=== PATIENT | female | born 1990 | race Hispanic/Latino ===

== ENCOUNTER 2017-02-13 18:04 | Observation (INO) | payer MEDICAID ==
[~2017-02-13] VITALS: Ht 157.5 cm; Wt 71.7 kg
[2017-02-13] MEDS ORDERED: ACETAMINOPHEN EXTRA STRENGTH 500 MG TABLET ONE (18:22)
[2017-02-13] MEDS ORDERED: SODIUM CHLORIDE 0.9% 1000ML 1,000 ML IV ONE (18:22)
[2017-02-13 18:37] LABS: BASOPHILS % (AUTO) 0.1 % (0.0-5.0); EOSINOPHILS % (AUTO) 0.2 % (0.0-8.0); HEMATOCRIT 29.6 % (36-48); LYMPHOCYTES % (AUTO) 14.9 % (21.0-51.0); MEAN CORPUSCULAR HEMOGLOBIN 30.7 pg (27.0-33.0); MEAN CORPUSCULAR HGB CONC 35.1 g/dL (32.0-36.0); MEAN CORPUSCULAR VOLUME 87.5 fL (79-99); MONOCYTES % (AUTO) 1.6 % (3.0-13.0); NEUTROPHILS % (AUTO) 83.2 % (40.0-77.0); PLATELET COUNT (AUTO) 281 K/uL (130-400); RED BLOOD CELL COUNT(AUTO) 3.39 MIL/uL (4.00-5.50); RED CELL DISTRIBUTION WIDTH 13.7 % (11.0-15.5); WHITE BLOOD COUNT (AUTO) 9.8 K/uL (4.8-10.8)
[2017-02-13 18:56] LABS: APPEARANCE,URINE Clear (CLEAR); BILIRUBIN,URINE Negative (NEGATIVE); COLOR,URINE Yellow (YELLOW); GLUCOSE, URINE (UA) Negative (NEGATIVE); KETONES,URINE 15 mg/dL (NEGATIVE); LEUKOCYTE ESTERASE ,URINE Moderate (NEGATIVE); NITRATE,URINE Negative (NEGATIVE); OCCULT BLOOD,URINE Trace (NEGATIVE); PH,URINE 5.5 (5.0-8.0); PROTEIN,URINE Trace (NEGATIVE)
[2017-02-13 19:05] LABS: CREATININE 0.7 mg/dL (0.5-1.5); POTASSIUM 3.7 mmol/L (3.5-5.1)
[2017-02-13 19:05] LABS: RAPID GROUP A STREP NEGATIVE (NEGATIVE)
[2017-02-13 19:10] LABS: ALBUMIN 2.7 g/dL (3.5-5.0); BILIRUBIN,TOTAL 0.5 mg/dL (0.2-1.0); TOTAL PROTEIN, SERUM 7.2 g/dL (6.0-8.3)
[2017-02-13 19:14] LABS: BACTERIA,URINE Few /HPF (None Seen); RBC,URINE 0-1 /HPF (0-1); WBC,URINE 26-50 /HPF (0-1)
[2017-02-13 19:15] LABS: SQUAMOUS EPITHELIAL CELL,UR 0-2 /LPF (0-2); TRANSITIONAL EPI CELLS,URINE Few /LPF (None Seen)
[2017-02-13] MEDS ORDERED: CEFTRIAXONE SODIUM 1 GM ONE (19:25)
[2017-02-13 21:20] VITALS: BP 98/51
[2017-02-13] MEDS: SODIUM CHLORIDE 0.9% 1000ML 1,000 ML IV SCH (22:00)
[2017-02-14] MEDS ORDERED: PNV1TABL17 PO (00:01)
[2017-02-14] MEDS ORDERED: PROM25TA7 PO (00:03)
[2017-02-14 00:04] VITALS: BP 100/50
[2017-02-14] MEDS: ACETAMINOPHEN EXTRA STRENGTH 500 MG TABLET PO PRN ×2 (01:19→13:03)
[2017-02-14] MEDS ORDERED: PROMETHAZINE HCL 25 MG/ML 1ML AMPULE IM ONE (02:42)
[2017-02-14] MEDS ORDERED: MEPERIDINE-PF 25 MG/ML SYG ONE (02:42)
[2017-02-14] MEDS ORDERED: PROMETHAZINE HCL 25 MG/ML 1ML AMPULE IM PRN (02:45)
[2017-02-14] MEDS ORDERED: MEPERIDINE-PF 25 MG/ML SYG IM PRN (02:45)
[2017-02-14 02:53] VITALS: BP 102/53
[2017-02-14] MEDS: SODIUM CHLORIDE 0.9% 1000ML 1,000 ML IV SCH ×2 (03:33→08:47)
[2017-02-14] MEDS ORDERED: FLU VACC QS2017-18 36MOS UP/PF 60 MCG/0.5 ML ML IM ONE (06:30)
[2017-02-14 07:35] VITALS: BP 104/68
[2017-02-14] MEDS ORDERED: FLU VACC QS2017-18 36MOS UP/PF 60 MCG/0.5 ML ML IM NR (08:00)
[2017-02-14] MEDS ORDERED: MAG HYDROX/AL HYDROX/SIMETH ES 30 ML SUSP UDCUP PO PRN (11:15)
[2017-02-14 11:37] VITALS: BP 113/66
[2017-02-14] MEDS ORDERED: CEFTRIAXONE 1GM/D5W 50ML 50 ML IV ONE (15:45)
[2017-02-14 15:50] VITALS: BP 113/67
[2017-02-14] MEDS ORDERED: CEFTRIAXONE 1GM/D5W 50ML 50 ML IV SCH (20:00)
[2017-02-14] MEDS ORDERED: CEFTRIAXONE SODIUM 1 GM IVP SCH (20:00)
== END 2017-02-14 16:35 | disposition left against medical advice (07) ==
LOC: EDH 18:04 → EDHIP 18:05 → WSH 21:47
PROVIDERS: ADMIT Specialist; ATTEND Specialist
DX: O23.02 Infections of kidney in pregnancy, second trimester (principal); O26.892 Other specified pregnancy related conditions, second trimester; R10.32 Left lower quadrant pain; Z3A.27 27 weeks gestation of pregnancy
CPT/HCPCS: 36415; 71046; 76805; 80053; 81001; 83605; 85025; 87040 ×2; 87088; 87186; 87804 ×2; 87880; 96361; 96372; 96374; 99285; G0378 ×22; J0696 ×3; J2175 ×2; J2550 ×2; J7030 ×2

== ENCOUNTER 2017-04-02 07:43 | Observation (INO) | payer MEDICAID ==
[2017-04-01] MEDS: AMPICILLIN 1GM+NS 50ML 50 ML IV SCH (12:50)
[~2017-04-02] VITALS: Ht 160 cm; Wt 71.2 kg
[~2017-04-02 07:43] MED LIST: PNV1TABL17 PO; PROM25TA7 PO
[2017-04-02 08:15] LABS: APPEARANCE,URINE Clear (CLEAR); BILIRUBIN,URINE Negative (NEGATIVE); COLOR,URINE Yellow (YELLOW); GLUCOSE, URINE (UA) Negative (NEGATIVE); KETONES,URINE Negative (NEGATIVE); LEUKOCYTE ESTERASE ,URINE Negative (NEGATIVE); NITRATE,URINE Negative (NEGATIVE); OCCULT BLOOD,URINE Negative (NEGATIVE); PH,URINE 7.5 (5.0-8.0); PROTEIN,URINE Negative (NEGATIVE); UROBILINOGEN,URINE 0.2 mg/dL (0.2-1.0)
[2017-04-02 08:25] LABS: AMPHET/METH SCREEN,URINE NEGATIVE (NEGATIVE); BARBITURATE SCREEN, URINE NEGATIVE (NEGATIVE); BENZODIAZEPINES SCREEN,URINE NEGATIVE (NEGATIVE); CANNABINOID SCREEN,URINE NEGATIVE (NEGATIVE); COCAINE SCREEN,URINE NEGATIVE (NEGATIVE); OPIATE SCREEN,URINE NEGATIVE (NEGATIVE); PHENCYCLIDINE SCREEN,URINE NEGATIVE (NEGATIVE)
[2017-04-02] MEDS: LACTATED RINGERS 1000ML 1,000 ML IV PRN ×3 (08:30→23:26)
[2017-04-02] MEDS ORDERED: MAGNESIUM SULFATE 1,000 ML IV PRN (08:39)
[2017-04-02] MEDS ORDERED: CALCIUM GLUCONATE 1 GM/10 ML VIAL IV PRN (08:45)
[2017-04-02] MEDS ORDERED: AMPICILLIN 2GM+NS 100ML 100 ML IV SCH (08:45)
[2017-04-02] MEDS ORDERED: MAGNESIUM 4GM PREMIX 100ML 100 ML IV SCH (08:45)
[2017-04-02] MEDS ORDERED: AMPICILLIN 2GM+NS 100ML 100 ML IV ONE (08:46)
[2017-04-02] MEDS ORDERED: DEXAMETHASONE SOD PHOSPHATE 4 MG/ML 1ML VIAL ONE (08:46)
[2017-04-02] MEDS ORDERED: MAGNESIUM 4GM PREMIX 100ML 100 ML IV ONE (08:46)
[2017-04-02] MEDS: DEXAMETHASONE SOD PHOSPHATE 4 MG/ML 1ML VIAL IM SCH ×3 (08:55→22:11)
[2017-04-02 09:05] LABS: HEMATOCRIT 30.2 % (36-48); MEAN CORPUSCULAR HEMOGLOBIN 29.8 pg (27.0-33.0); MEAN CORPUSCULAR HGB CONC 34.7 g/dL (32.0-36.0); MEAN CORPUSCULAR VOLUME 85.8 fL (79-99); PLATELET COUNT (AUTO) 285 K/uL (130-400); RED BLOOD CELL COUNT(AUTO) 3.52 MIL/uL (4.00-5.50); RED CELL DISTRIBUTION WIDTH 14.5 % (11.0-15.5); WHITE BLOOD COUNT (AUTO) 6.4 K/uL (4.8-10.8)
[2017-04-02] MEDS ORDERED: CALCIUM GLUCONATE 1 GM in SODIUM CHLORIDE 0.9% 50 ML IV SCH (09:15)
[2017-04-02] MEDS ORDERED: CALCIUM GLUCONATE 1 GM in SODIUM CHLORIDE 0.9% 50 ML IV PRN (09:17)
[2017-04-02] MEDS ORDERED: CITRIC ACID/SODIUM CITRATE 30 ML UDCUP ONE (14:25)
[2017-04-02] MEDS ORDERED: CITRIC ACID/SODIUM CITRATE 30 ML UDCUP PO SCH (14:30)
[2017-04-02] MEDS: AMPICILLIN 1GM+NS 50ML 50 ML IV SCH ×2 (16:44→20:51)
[2017-04-02] MEDS ORDERED: MAG HYDROX/AL HYDROX/SIMETH ES 30 ML SUSP UDCUP PO STA (19:43)
[2017-04-02] MEDS ORDERED: OSELTAMIVIR PHOSPHATE 75 MG CAP PO STA (22:24)
[2017-04-02] MEDS ORDERED: OSELTAMIVIR PHOSPHATE 75 MG CAP ONE (22:27)
[2017-04-03] MEDS: AMPICILLIN 1GM+NS 50ML 50 ML IV SCH ×2 (00:34→04:05)
[2017-04-03] MEDS: DEXAMETHASONE SOD PHOSPHATE 4 MG/ML 1ML VIAL IM SCH (04:05)
[2017-04-03] MEDS ORDERED: OSELTAMIVIR PHOSPHATE 75 MG CAP ONE (09:47)
[2017-04-03 13:18] LABS: HEPATITIS Bs ANTIGEN SCREEN P Negative (Negative)
== END 2017-04-03 10:35 | disposition home or self-care (01) ==
LOC: EDH 07:43 → LDH 07:44
PROVIDERS: ADMIT Specialist; ATTEND Specialist
DX: O62.9 Abnormality of forces of labor, unspecified (principal); Z3A.30 30 weeks gestation of pregnancy
CPT/HCPCS: 36415; 80305; 81003; 83735 ×2; 85027; 86592; 86850; 86900; 86901; 87340; 87804 ×2; 96361; 96365; 96366 ×2; 96368; 96372 ×3; 99285; A4314; G0378 ×27; J0290 ×6; J0610; J1100 ×4; J3475 ×2; J7120; 96360

== ENCOUNTER 2017-05-03 15:14 | Inpatient (IN) | payer MEDICAID ==
[2017-05-03 15:45] LABS: APPEARANCE,URINE Clear (CLEAR); BILIRUBIN,URINE Negative (NEGATIVE); COLOR,URINE Yellow (YELLOW); GLUCOSE, URINE (UA) Negative (NEGATIVE); KETONES,URINE Negative (NEGATIVE); LEUKOCYTE ESTERASE ,URINE Negative (NEGATIVE); NITRATE,URINE Negative (NEGATIVE); OCCULT BLOOD,URINE Negative (NEGATIVE); PROTEIN,URINE Negative (NEGATIVE); UROBILINOGEN,URINE 0.2 mg/dL (0.2-1.0)
[2017-05-03 16:11] LABS: HEMATOCRIT 47.1 % (36-48); MEAN CORPUSCULAR HEMOGLOBIN 28.3 pg (27.0-33.0); MEAN CORPUSCULAR HGB CONC 33.4 g/dL (32.0-36.0); MEAN CORPUSCULAR VOLUME 84.5 fL (79-99); NUCLEATED RED BLOOD CELLS 0.1 % (0.0-0.19); PLATELET COUNT (AUTO) 296 K/uL (130-400); RED BLOOD CELL COUNT(AUTO) 5.57 MIL/uL (4.00-5.50); RED CELL DISTRIBUTION WIDTH 15.2 % (11.0-15.5); WHITE BLOOD COUNT (AUTO) 10.5 K/uL (4.8-10.8)
[2017-05-03] MEDS ORDERED: PROPOFOL 10 MG/ML 20ML VIAL IV ONE (16:22)
[2017-05-03] MEDS ORDERED: FENTANYL CITRATE PF 50 MCG/1 ML 5ML AMP IV ONE (16:31)
[2017-05-03] MEDS ORDERED: OXYTOCIN 10 UNIT/1ML 10ML VIAL ONE (16:35)
[2017-05-03] MEDS ORDERED: CEFAZOLIN SODIUM 1 GM VIAL ONE (16:36)
[2017-05-03] MEDS ORDERED: BERACTANT 200MG/8ML IH ONE (16:39)
[2017-05-03] MEDS ORDERED: BERACTANT 100MG/4ML IH ONE (16:39)
[2017-05-03] MEDS ORDERED: CEFAZOLIN SODIUM 1 GM VIAL IVP ONE (16:40)
[2017-05-03] MEDS ORDERED: MORPHINE SULFATE 10 MG/ML 1ML SYG ONE (16:45)
[2017-05-03] MEDS ORDERED: MISOPROSTOL 200 MCG TABLET ONE (16:54)
[2017-05-03] MEDS ORDERED: MEASLES/MUMPS/RUBELLA VACCINE, LIVE 0.5 ML/VIAL SQ SCH (17:15)
[2017-05-03] MEDS ORDERED: HYDROCODONE/ACETAMINOPHEN 5/325 MG TAB PO PRN (17:15)
[2017-05-03] MEDS ORDERED: DIPH,PERTUSS(ACELL),TET VAC/PF 0.5 ML VIAL IM SCH (17:15)
[2017-05-03] MEDS ORDERED: OXYTOCIN-LR 20 UNITS/1000 ML 1,000 ML IV PRN (17:15)
[2017-05-03] MEDS ORDERED: PROMETHAZINE HCL 25 MG/ML 1ML AMPULE IM PRN (17:15)
[2017-05-03] MEDS ORDERED: LANOLIN 30GM OINTMENT TP PRN (17:15)
[2017-05-03] MEDS ORDERED: DIPHENHYDRAMINE HCL 25 MG CAPSULE PO PRN (17:15)
[2017-05-03] MEDS ORDERED: MEPERIDINE-PF 75 MG/ML SYG IM PRN (17:15)
[2017-05-03] MEDS ORDERED: LACTATED RINGERS 1000ML 1,000 ML IV SCH ×2 (17:15→20:26)
[2017-05-03] MEDS ORDERED: MAG HYDROX/AL HYDROX/SIMETH ES 30 ML SUSP UDCUP PO SCH (18:30)
[2017-05-03 18:34] LABS: AMPHET/METH SCREEN,URINE NEGATIVE (NEGATIVE); BARBITURATE SCREEN, URINE NEGATIVE (NEGATIVE); BENZODIAZEPINES SCREEN,URINE NEGATIVE (NEGATIVE); CANNABINOID SCREEN,URINE NEGATIVE (NEGATIVE); COCAINE SCREEN,URINE NEGATIVE (NEGATIVE); OPIATE SCREEN,URINE NEGATIVE (NEGATIVE); PHENCYCLIDINE SCREEN,URINE NEGATIVE (NEGATIVE)
[2017-05-03] MEDS ORDERED: MAG HYDROX/AL HYDROX/SIMETH ES 30 ML SUSP UDCUP ONE (18:36)
[2017-05-03] MEDS ORDERED: CALDOLOR 800MG+NS 250ML 250 ML IV ONE (18:49)
[2017-05-03] MEDS ORDERED: MAGNESIUM SULFATE 1,000 ML IV PRN (20:26)
[2017-05-03] MEDS ORDERED: CALCIUM GLUCONATE 1 GM/10 ML VIAL IVP PRN (20:30)
[2017-05-03] MEDS ORDERED: MAGNESIUM 4GM PREMIX 100ML 100 ML IV PRN (20:30)
[2017-05-03] MEDS ORDERED: MAGNESIUM 4GM PREMIX 100ML 100 ML IV ONE (20:33)
[2017-05-03] MEDS: LIDOCAINE 5% TOPICAL PATCH TP SCH (20:53)
[2017-05-03] MEDS: SIMETHICONE 80 MG TAB.CHEW PO PRN (22:58)
[2017-05-04] MEDS ORDERED: CALDOLOR 800MG+NS 250ML 250 ML IV SCH (01:15)
[2017-05-04 07:08] LABS: HEMATOCRIT 39.8 % (36-48); MEAN CORPUSCULAR HEMOGLOBIN 27.9 pg (27.0-33.0); MEAN CORPUSCULAR HGB CONC 32.5 g/dL (32.0-36.0); PLATELET COUNT (AUTO) 295 K/uL (130-400); RED BLOOD CELL COUNT(AUTO) 4.63 MIL/uL (4.00-5.50); RED CELL DISTRIBUTION WIDTH 15.4 % (11.0-15.5)
[2017-05-04 07:52] LABS: BASOPHILS % (AUTO) 0.1 % (0.0-5.0); HEMATOCRIT 40.5 % (36-48); LYMPHOCYTES % (AUTO) 20.4 % (21.0-51.0); MEAN CORPUSCULAR HEMOGLOBIN 27.6 pg (27.0-33.0); MEAN CORPUSCULAR HGB CONC 32.2 g/dL (32.0-36.0); MEAN CORPUSCULAR VOLUME 85.6 fL (79-99); MONOCYTES % (AUTO) 2.1 % (3.0-13.0); NEUTROPHILS % (AUTO) 77.4 % (40.0-77.0); NUCLEATED RED BLOOD CELLS 0.1 % (0.0-0.19); PLATELET COUNT (AUTO) 297 K/uL (130-400); RED BLOOD CELL COUNT(AUTO) 4.73 MIL/uL (4.00-5.50); RED CELL DISTRIBUTION WIDTH 15.4 % (11.0-15.5); WHITE BLOOD COUNT (AUTO) 24.6 K/uL (4.8-10.8)
[2017-05-04 08:10] LABS: CREATININE 1.8 mg/dL (0.5-1.5); POTASSIUM 3.4 mmol/L (3.5-5.1)
[2017-05-04 08:11] LABS: INR 1.55 (0.85-1.15); PARTIAL THROMBOPLASTIN TIME 36.9 SEC (26.3-35.5); PROTHROMBIN TIME 16.1 SEC (9.6-11.6)
[2017-05-04 08:16] LABS: ALBUMIN 2.1 g/dL (3.5-5.0); BILIRUBIN,TOTAL 1.1 mg/dL (0.2-1.0); URIC ACID 11.2 mg/dL (2.6-7.2)
[2017-05-04] MEDS ORDERED: ACETAMINOPHEN EXTRA STRENGTH 500 MG TABLET PO PRN (08:30)
[2017-05-04] MEDS ORDERED: MAG HYDROX/AL HYDROX/SIMETH ES 30 ML SUSP UDCUP PO SCH ×2 (09:15)
[2017-05-04] MEDS ORDERED: DEXTROSE 5 %-0.45 % NACL 1,000 ML IV PRN (09:45)
[2017-05-04 12:16] LABS: BASOPHILS % (AUTO) 0.1 % (0.0-5.0); HEMATOCRIT 34.5 % (36-48); LYMPHOCYTES % (AUTO) 18.7 % (21.0-51.0); MEAN CORPUSCULAR HEMOGLOBIN 28.3 pg (27.0-33.0); MEAN CORPUSCULAR HGB CONC 33.4 g/dL (32.0-36.0); MEAN CORPUSCULAR VOLUME 84.8 fL (79-99); MONOCYTES % (AUTO) 4.3 % (3.0-13.0); NEUTROPHILS % (AUTO) 76.9 % (40.0-77.0); PLATELET COUNT (AUTO) 269 K/uL (130-400); RED BLOOD CELL COUNT(AUTO) 4.06 MIL/uL (4.00-5.50); RED CELL DISTRIBUTION WIDTH 15.4 % (11.0-15.5); WHITE BLOOD COUNT (AUTO) 25.9 K/uL (4.8-10.8)
[2017-05-04] MEDS: SIMETHICONE 80 MG TAB.CHEW PO PRN (12:31)
[2017-05-04 12:35] LABS: ALBUMIN 1.8 g/dL (3.5-5.0); BILIRUBIN,DIRECT 0.5 mg/dL (0.0-0.3); BILIRUBIN,TOTAL 0.9 mg/dL (0.2-1.0); MAGNESIUM 6.8 mg/dL (1.80-2.40); TOTAL PROTEIN, SERUM 6.2 g/dL (6.0-8.3)
[2017-05-04] MEDS ORDERED: MAG HYDROX/AL HYDROX/SIMETH ES 30 ML SUSP UDCUP PO PRN (16:45)
[2017-05-04] MEDS: IBUPROFEN 800 MG TAB PO SCH (18:19)
[2017-05-04] MEDS: DOCUSATE SODIUM 100 MG CAP PO SCH (22:22)
[2017-05-04] MEDS: LIDOCAINE 5% TOPICAL PATCH TP SCH (22:23)
[2017-05-04] MEDS: ACETAMINOPHEN-CODEINE 300/30MG TAB PO PRN (23:34)
[2017-05-05] MEDS: IBUPROFEN 800 MG TAB PO SCH ×3 (03:30→16:56)
[2017-05-05 07:00] LABS: HEMATOCRIT 26.2 % (36-48); INR 2.16 (0.85-1.15); MEAN CORPUSCULAR HEMOGLOBIN 27.4 pg (27.0-33.0); MEAN CORPUSCULAR HGB CONC 32.9 g/dL (32.0-36.0); MEAN CORPUSCULAR VOLUME 83.2 fL (79-99); NUCLEATED RED BLOOD CELLS 0.1 % (0.0-0.19); PLATELET COUNT (AUTO) 211 K/uL (130-400); PROTHROMBIN TIME 22.3 SEC (9.6-11.6); RED BLOOD CELL COUNT(AUTO) 3.15 MIL/uL (4.00-5.50); RED CELL DISTRIBUTION WIDTH 15.2 % (11.0-15.5); WHITE BLOOD COUNT (AUTO) 28.1 K/uL (4.8-10.8)
[2017-05-05 07:05] LABS: ALBUMIN 1.6 g/dL (3.5-5.0); BILIRUBIN,DIRECT 0.6 mg/dL (0.0-0.3); CREATININE 1.3 mg/dL (0.5-1.5); POTASSIUM 4.2 mmol/L (3.5-5.1)
[2017-05-05 07:20] LABS: LYMPHOCYTES % (MANUAL) 7 % (22-44); MONOCYTES % (MANUAL) 4 % (2-9); SEGMENTED NEUTROPHILS % 89 % (40-70)
[2017-05-05 07:22] LABS: MAN.DIFF COMMENT-IMPRESSION MANUAL DIFFERENTIAL; PLATELET MORPHOLOGY COMMENT ADEQUATE
[2017-05-05 08:20] LABS: HEPATITIS Bs ANTIGEN SCREEN P Negative (Negative)
[2017-05-05] MEDS ORDERED: ZOSYN 3.375GM+NS 50ML 50 ML IV SCH (08:45)
[2017-05-05] MEDS: DOCUSATE SODIUM 100 MG CAP PO SCH ×3 (09:00→21:31)
[2017-05-05] MEDS ORDERED: CALCIUM GLUCONATE 1 GM/10 ML VIAL IV SCH (09:00)
[2017-05-05] MEDS: LIDOCAINE 5% TOPICAL PATCH TP SCH ×2 (09:00→21:30)
[2017-05-05] MEDS: BISACODYL 10 MG SUPP.RECT RC PRN (09:18)
[2017-05-05] MEDS: SIMETHICONE 80 MG TAB.CHEW PO PRN ×2 (09:18→23:19)
[2017-05-05] MEDS: MEROPENEM 1 GM VIAL IVP SCH ×2 (09:20→16:56)
[2017-05-05] MEDS: ACETAMINOPHEN-CODEINE 300/30MG TAB PO PRN ×2 (10:58→19:03)
[2017-05-05 12:49] LABS: RETICULOCYTE % (AUTO) 1.87 % (0.42-2.23)
[2017-05-05 12:50] LABS: HEMATOCRIT 25.3 % (36-48); MEAN CORPUSCULAR HEMOGLOBIN 27.5 pg (27.0-33.0); MEAN CORPUSCULAR HGB CONC 32.6 g/dL (32.0-36.0); MEAN CORPUSCULAR VOLUME 84.5 fL (79-99); NUCLEATED RED BLOOD CELLS 0.2 % (0.0-0.19); PLATELET COUNT (AUTO) 198 K/uL (130-400); RED CELL DISTRIBUTION WIDTH 15.5 % (11.0-15.5); WHITE BLOOD COUNT (AUTO) 27.8 K/uL (4.8-10.8)
[2017-05-05 13:03] LABS: BILIRUBIN,DIRECT 0.7 mg/dL (0.0-0.3); BILIRUBIN,TOTAL 1.1 mg/dL (0.2-1.0); TOTAL PROTEIN, SERUM 5.6 g/dL (6.0-8.3)
[2017-05-05 13:12] LABS: % IRON SATURATION 34.1 % (22-44)
[2017-05-05 13:55] LABS: BAND NEUTROPHILS % (MANUAL) 1 % (0-2); LYMPHOCYTES % (MANUAL) 12 % (22-44); MONOCYTES % (MANUAL) 2 % (2-9); SEGMENTED NEUTROPHILS % 85 % (40-70)
[2017-05-05 13:57] LABS: PLATELET MORPHOLOGY COMMENT ADEQUATE
[2017-05-05 13:58] LABS: MAN.DIFF COMMENT-IMPRESSION MANUAL DIFFERENTIAL
[2017-05-06] MEDS: IBUPROFEN 800 MG TAB PO SCH ×3 (01:12→09:51)
[2017-05-06] MEDS: MEROPENEM 1 GM VIAL IVP SCH ×3 (01:12→17:55)
[2017-05-06 04:42] LABS: LYMPHOCYTES % (AUTO) 24.7 % (21.0-51.0); MEAN CORPUSCULAR HEMOGLOBIN 28.7 pg (27.0-33.0); MEAN CORPUSCULAR VOLUME 84.5 fL (79-99); MONOCYTES % (AUTO) 5.7 % (3.0-13.0); NEUTROPHILS % (AUTO) 69.6 % (40.0-77.0); NUCLEATED RED BLOOD CELLS 0.3 % (0.0-0.19); PLATELET COUNT (AUTO) 182 K/uL (130-400); RED BLOOD CELL COUNT(AUTO) 2.73 MIL/uL (4.00-5.50); RED CELL DISTRIBUTION WIDTH 15.1 % (11.0-15.5); WHITE BLOOD COUNT (AUTO) 18.8 K/uL (4.8-10.8)
[2017-05-06 04:54] LABS: PARTIAL THROMBOPLASTIN TIME 39.8 SEC (26.3-35.5); PROTHROMBIN TIME 20.7 SEC (9.6-11.6)
[2017-05-06 05:03] LABS: ALBUMIN 1.6 g/dL (3.5-5.0); BILIRUBIN,DIRECT 0.4 mg/dL (0.0-0.3); BILIRUBIN,TOTAL 0.8 mg/dL (0.2-1.0); POTASSIUM 3.8 mmol/L (3.5-5.1); TOTAL PROTEIN, SERUM 4.9 g/dL (6.0-8.3)
[2017-05-06 09:03] VITALS: BP 115/83
[2017-05-06] MEDS ORDERED: WATER FOR INJECTION,STERILE 5 ML VIAL ONE ×2 (09:22→17:44)
[2017-05-06] MEDS: DOCUSATE SODIUM 100 MG CAP PO SCH ×2 (09:49→21:30)
[2017-05-06] MEDS: SIMETHICONE 80 MG TAB.CHEW PO PRN ×4 (09:49→21:30)
[2017-05-06] MEDS: FERROUS SULFATE 325 MG TABLET.DR PO SCH ×2 (09:50→17:55)
[2017-05-06 11:29] VITALS: BP 131/75
[2017-05-06] MEDS: ACETAMINOPHEN-CODEINE 300/30MG TAB PO PRN ×3 (13:16→23:59)
[2017-05-06 16:02] VITALS: BP 129/62
[2017-05-06 19:28] VITALS: BP 133/96
[2017-05-06] MEDS: BISACODYL 10 MG SUPP.RECT RC PRN (20:08)
[2017-05-06] MEDS: HYDROCODONE/ACETAMINOPHEN 5/325 MG TAB PO PRN (20:09)
[2017-05-06] MEDS: LIDOCAINE 5% TOPICAL PATCH TP SCH (21:30)
[2017-05-06 23:48] VITALS: BP 136/81
[2017-05-07] MEDS: MEROPENEM 1 GM VIAL IVP SCH ×2 (01:13→08:26)
[2017-05-07 03:45] VITALS: BP 128/67
[2017-05-07] MEDS: ACETAMINOPHEN-CODEINE 300/30MG TAB PO PRN (04:18)
[2017-05-07 04:39] LABS: HEMATOCRIT 25.6 % (36-48); MEAN CORPUSCULAR HEMOGLOBIN 28.1 pg (27.0-33.0); MEAN CORPUSCULAR HGB CONC 33.1 g/dL (32.0-36.0); MEAN CORPUSCULAR VOLUME 84.9 fL (79-99); NUCLEATED RED BLOOD CELLS 0.4 % (0.0-0.19); PLATELET COUNT (AUTO) 216 K/uL (130-400); RED BLOOD CELL COUNT(AUTO) 3.01 MIL/uL (4.00-5.50); RED CELL DISTRIBUTION WIDTH 15.4 % (11.0-15.5)
[2017-05-07 05:05] LABS: INR 1.56 (0.85-1.15); PROTHROMBIN TIME 16.2 SEC (9.6-11.6)
[2017-05-07 05:07] LABS: ALBUMIN 1.8 g/dL (3.5-5.0); BILIRUBIN,DIRECT 0.5 mg/dL (0.0-0.3); BILIRUBIN,TOTAL 0.7 mg/dL (0.2-1.0); CREATININE 0.9 mg/dL (0.5-1.5); POTASSIUM 4.7 mmol/L (3.5-5.1); TOTAL PROTEIN, SERUM 5.3 g/dL (6.0-8.3)
[2017-05-07 07:34] VITALS: BP 128/78
[2017-05-07] MEDS: FERROUS SULFATE 325 MG TABLET.DR PO SCH (08:26)
[2017-05-07] MEDS: DOCUSATE SODIUM 100 MG CAP PO SCH (08:26)
[2017-05-07] MEDS: SIMETHICONE 80 MG TAB.CHEW PO PRN (08:26)
[2017-05-07] MEDS: HYDROCODONE/ACETAMINOPHEN 5/325 MG TAB PO PRN (08:32)
[2017-05-07 11:39] VITALS: BP 130/78
== END 2017-05-07 13:10 | disposition home or self-care (01) | DRG 540 ==
LOC: EDH 15:14 → OBSVTOIN 15:15 → LDH 15:15 → INTOOBSV 15:15 → LDH 17:37 → WSH 05-05 17:48
PROVIDERS: ADMIT Specialist; ATTEND Specialist
PROC: 30233L1 Transfusion of Nonautologous Fresh Plasma into Peripheral Vein, Percutaneous Approach (ICD-10-PCS; 2017-05-03)
PROC: 30233K1 Transfusion of Nonautologous Frozen Plasma into Peripheral Vein, Percutaneous Approach (ICD-10-PCS; 2017-05-03)
PROC: 10D00Z1 Extraction of Products of Conception, Low, Open Approach (ICD-10-PCS; principal; 2017-05-03 16:00)
DX: O45.93 Premature separation of placenta, unspecified, third trimester (principal); D68.9 Coagulation defect, unspecified; Z37.0 Single live birth; O62.2 Other uterine inertia; D72.829 Elevated white blood cell count, unspecified; O76 Abnormality in fetal heart rate and rhythm complicating labor and delivery; Z28.21 Immunization not carried out because of patient refusal; Z3A.34 34 weeks gestation of pregnancy
CPT/HCPCS: 36415; 59510; 76705; 80048; 80053; 80076; 80305; 81003; 82044; 82607; 82728; 82746; 83735; 84443; 84550; 85025; 85027; 85060; 85384; 85610; 85730; 86592; 86850; 86900; 86901; 86927; 87040; 87088; 87340; 88307; A4218; A4344; A4606; J0610; J0690; J1741; J2175; J2185; J2270; J2543; J2550; J2590; J2704; J3010; J3475; J3490; J7120; P9017